=== PATIENT | female | born 1960 | race Caucasian/White ===

== ENCOUNTER 2023-12-06 07:52 | Emergency (ER) | payer OTHER, SELFPAY ==
[2023-12-06 07:55] VITALS: BP 116/57
--- NOTE | 2023-12-06 08:36 | ED.MUSCINJ ---
HPI-Injury
General
Chief Complaint: Musculo-Skeletal Complaint
Source: patient
Exam Limitations: none
Time Seen by Provider: 12/06/23 08:02
Nursing documentation reviewed up to this point in time: agreed with
Travel History
Have you had any contact with someone who has COVID-19?: No
Do you have any symptoms of coronavirus? Fever > 100 degrees, chills, cough, shortness of breath, sore throat, loss of taste or smell, muscle aches, or headache?: No
History of Present Illness-Injury
Initial Injury comments:
63-year-old female was walking her dog this morning, slipped on the ice and fell injuring her right ankle. Denies any other injury. She was able to weight-bear with her snow boots on but not once she removed them.
Past History
Past History
ED Past Medical History: HTN and Hypercholesterolemia
Social History
Tobacco: Non-smoker
Alcohol: Occasional
Personal:
Living: with family
Employment: Employed
Review of Systems
Review of Systems
Allergies reviewed?: Yes
All Other Systems: ROS reviewed and negative except as documented in HPI and ROS
Musculoskeletal: Reports other (Right lateral ankle pain); Denies neck pain or back pain
Skin: Reports no symptoms
Neurological: Reports no symptoms
Musculoskeletal Injury Exam
Musculoskeletal Injury Exam
Right Upper Lateral Ankle:
Pain with Movement?: Moderate
Tender to palpation?: Moderate
Soft tissue swelling?: Mild
Strain- Sprain- Tear (Connective tissue injury)?: Mild
Crepitus with movement?: No
Joint instability?: No
Malalignment/deformity?: No
Range of motion: Limited
Distal skin color and temperature: normal-warm & good color
Capillary Refill: normal
Normal distal neurovascular exam?: Yes
Phy Exam
Physical Exam
Physical Exam:
PHYSICAL EXAMINATION:
General: no apparent distress, not acutely ill
Neuro: alert and oriented.
Psychiatric: well kept. interactive and cooperative
Musculoskeletal: Moves with ease
Skin: Warm, pink.
Injury Course
Orders/Labs/Results
Orders:
Orders
12/06/23 07:57
Ankle, Right 3 view CR [CR Ankle - Right Min 3 Views *] Urgent
Comment:
Reason For Exam: injury/trauma
12/06/23 08:36
Ortho Boot Right- Treatment ONCE
Short or tall?: Tall
MDM/Problems Addressed
Differential Diagnosis Includes:
fracture, sprain
MDM/Problems Addressed:
63-year-old female was walking her dog this morning, slipped on the ice and fell injuring her right ankle. Denies any other injury. She was able to weight-bear with her snow boots on but not once she removed them.
X-ray right ankle initially read by this examiner: No acute bony abnormality noted.
Ortho boot applied and patient is able to weight-bear fairly comfortably
Referred to orthopedics for follow-up as needed
*Critical Care Note
Total Time (30-74mins, 75-104mins- exclusive of procedures): Not Applicable
ED Attending Note
-
Portions of this chart may have been created with voice recognition software.� Occasional wrong word or��sound alike� substitutions may have occurred due to the inherent limitations of voice recognition software.
Discharge Plan
Departure
Patient Disposition: Home (Routine Discharge)
Date of Disposition: 12/06/23
Time of Disposition: 08:38
Patient with high blood pressure during this ER visit?: No
Condition: Good
Discharge Problem:
High ankle sprain of right lower extremity, Fall from slip, trip, or stumble
Instructions: Ankle Sprain (DC), Walking Boot, Using Cold for Pain
Referrals:
Luis Mcnamara MD [Active] - As needed
Hortencia Mcarthur MD [Family Provider] -
Activity Restrictions/Additional Instructions:
As we discussed, Tylenol or ibuprofen as needed for pain.
Wear the walking boot when up and around until you can walk comfortably without it
Cool compress to the area 20 minutes off and on today and tomorrow
See the orthopedic doctor if not much improved within the next week
Interventions
Interventions:
*Risk Screen - Suicide Last Done: 12/06/23 07:55
*General Assessment Last Done: 12/06/23 07:55
*Neglect/Abuse Screening Last Done: 12/06/23 07:55
ED- Fall Risk Assessment Last Done: 12/06/23 08:10
*ED COVID-19 Vaccine History Last Done: 12/06/23 07:55
*Nursing Disposition Last Done: 12/06/23 08:57
ED-Musculoskeletal Assessment Last Done: 12/06/23 08:10
Discharge Date and Time
Discharge Date/Time: 12/06/23 08:58
== END 2023-12-06 08:58 | disposition home or self-care (01) ==
LOC: EMR 07:52
PROVIDERS: EMERGENCY PHYSICIAN Emergency Medicine; FAMILY PHYSICIAN Family Medicine
DX: S93.401A Sprain of unspecified ligament of right ankle, initial encounter (principal); W00.0XXA Fall on same level due to ice and snow, initial encounter; Y93.K1 Activity, walking an animal; I10 Essential (primary) hypertension; E78.00 Pure hypercholesterolemia, unspecified; M19.90 Unspecified osteoarthritis, unspecified site; Z88.8 Allergy status to other drugs, medicaments and biological substances
CPT/HCPCS: 99283; 29515; 73610